=== PATIENT | female | born 1985 | race Native Hawaiian/Other Pacific Islander ===

== ENCOUNTER 2019-12-04 21:41 | Inpatient (IN) | payer MEDICAID, OTHER ==
[~2019-12-04] VITALS: Ht 172.7 cm; Wt 150.4 kg
[2019-12-04] MEDS ORDERED: fentaNYL CITRATE 100 MCG/2 ML VL IV ONE (22:45)
[2019-12-04] MEDS ORDERED: SODIUM CHLORIDE 0.9% 2,000 ML IV ONE (22:45)
[2019-12-04 23:11] LABS: Basophils # (auto) 0.1 10 ^3/uL (0-0.2); Basophils % (auto) 0.4 % (0.0-2.0); Eosinophils # (auto) 0 10 ^3/uL (0-0.8)
[2019-12-04 23:12] LABS: Eosinophils % (auto) 0.3 % (0.0-7.0); Hematocrit 30.4 % (36.0-46.0); Hemoglobin 10.3 g/dL (12.2-16.2); Lymphocytes # (auto) 0.6 10 ^3/uL (0.4-5.4); Lymphocytes % (auto) 4.3 % (10.0-50.0); Mean Corpuscular Hemoglobin 27.6 pg (28.0-32.0); Mean Corpuscular Hgb Conc. 33.8 g/dL (32.0-36.0); Mean Corpuscular Volume 81.7 fL (80.0-100.0); Monocytes # (auto) 0.9 10 ^3/uL (0-1.3); Monocytes % (auto) 6.1 % (0.0-12.0); Neutrophils # (auto) 12.3 10 ^3/uL (1.6-8.6); Neutrophils % (auto) 88.9 % (37.0-80.0); Platelet Count (auto) 283 10^3/uL (140-450); Red Blood Cells 3.72 10^6/uL (4.0-5.20); Red Cell Distribution Width 14.9 % (11.8-14.3); White Blood Cell 13.9 10^3/uL (4.4-10.8)
[2019-12-04 23:28] LABS: Albumin 2.6 g/dL (3.4-5.0); BUN/Creatinine Ratio 10.7; Calcium 7.2 mg/dL (8.5-10.1); Potassium 5.3 mmol/L (3.5-5.1)
[2019-12-04 23:31] LABS: Bilirubin, Total 0.2 mg/dL (0.2-1.0); Total Protein 7.3 g/dL (6.4-8.2)
[2019-12-04 23:40] LABS: Urine Bacteria NONE SEEN /hpf (None Seen); Urine Blood 1+ /uL (Negative); Urine Mucus FEW (None Seen); Urine Specific Gravity 1.013 (1.001-1.035); Urine WBC 14 /hpf (0 - 5)
[2019-12-05] MEDS ORDERED: fentaNYL CITRATE 100 MCG/2 ML VL IV ONE (00:15)
[2019-12-05] MEDS ORDERED: ONDANSETRON HCL 4 MG/2 ML VIAL IV ONE (01:30)
[2019-12-05] MEDS ORDERED: HYDROmorphone HCL 2 MG/ML VL IV ONE (01:30)
[2019-12-05] MEDS ORDERED: SODIUM CHLORIDE 0.9% 1,000 ML IV SCH (02:17)
[2019-12-05] MEDS ORDERED: ACETAMINOPHEN 325 MG TAB PO PRN (02:30)
[2019-12-05] MEDS ORDERED: HYDROcodone-ACET 5/325MG TAB PO PRN (02:30)
[2019-12-05] MEDS ORDERED: LACTULOSE 20Gm/30ML SOLN PO PRN (02:30)
[2019-12-05] MEDS ORDERED: DOCUSATE SOD 100 MG CAP PO PRN (02:30)
[2019-12-05] MEDS ORDERED: ALUM & MAG HYDROX-SIMETH LIQ(MAALOX) 30 ML PO PRN (02:30)
[2019-12-05] MEDS ORDERED: DEXTROSE (50%) 50ML SYRG IV PRN (02:30)
[2019-12-05] MEDS: InsuLIN REG 1unit/0.01ml Soln (100units/ml) SC SCH ×5 (04:00→21:10)
[2019-12-05] MEDS: ACCU-CHEK COMFORT CURVE STRIP VI SCH ×5 (04:16→20:00)
[2019-12-05] MEDS: MORPHINE SULFATE 4 MG/ML SYR/VIAL IV PRN ×2 (05:05→10:45)
[2019-12-05] MEDS: metroNIDAZOLE 500MG/100ML 100 ML IV SCH ×3 (05:37→23:14)
[2019-12-05 06:15] LABS: Basophils # (auto) 0 10 ^3/uL (0-0.2); Basophils % (auto) 0.2 % (0.0-2.0); Eosinophils # (auto) 0.1 10 ^3/uL (0-0.8); Eosinophils % (auto) 0.9 % (0.0-7.0); Hematocrit 30.9 % (36.0-46.0); Hemoglobin 10.1 g/dL (12.2-16.2); Lymphocytes # (auto) 0.5 10 ^3/uL (0.4-5.4); Lymphocytes % (auto) 4.7 % (10.0-50.0); Mean Corpuscular Hgb Conc. 32.8 g/dL (32.0-36.0); Mean Corpuscular Volume 82.2 fL (80.0-100.0); Monocytes # (auto) 0.6 10 ^3/uL (0-1.3); Monocytes % (auto) 5.2 % (0.0-12.0); Neutrophils # (auto) 9.6 10 ^3/uL (1.6-8.6); Platelet Count (auto) 279 10^3/uL (140-450); Red Blood Cells 3.76 10^6/uL (4.0-5.20); Red Cell Distribution Width 14.8 % (11.8-14.3); White Blood Cell 10.8 10^3/uL (4.4-10.8)
[2019-12-05 06:27] LABS: Calcium 7.2 mg/dL (8.5-10.1)
[2019-12-05 06:36] LABS: Potassium 6.8 mmol/L (3.5-5.1)
[2019-12-05] MEDS ORDERED: ALBUTEROL SULF 2.5 MG/0.5ML(0.5%) NEB SOLN NEB ONE (07:00)
[2019-12-05] MEDS ORDERED: CALCIUM GLUC 4.65meq/50ml D5AE 50 ML IV ONE (07:00)
[2019-12-05] MEDS ORDERED: DEXTROSE (50%) 50ML SYRG IV ONE (07:00)
[2019-12-05] MEDS ORDERED: InsuLIN REG 1unit/0.01ml Soln (100units/ml) IV ONE (07:00)
[2019-12-05] MEDS ORDERED: FUROSEMIDE 20 MG/2 ML VIAL IV ONE (07:00)
[2019-12-05] MEDS ORDERED: SODIUM ZIRCONIUM CYCL 10 GM PAK PO ONE (07:00)
[2019-12-05] MEDS ORDERED: LOSARTAN POTASSIUM 50 MG TAB PO SCH (10:00)
[2019-12-05 11:17] VITALS: BP 128/74
[2019-12-05 11:48] LABS: Phosphorus 3.6 mg/dL (2.5-4.90); Uric Acid 10.5 mg/dL (2.6-6.0)
[2019-12-05] MEDS: LACTULOSE 20Gm/30ML SOLN PO SCH ×4 (12:36→22:00)
[2019-12-05] MEDS: SODIUM ZIRCONIUM CYCL 10 GM PAK PO SCH ×3 (12:36→23:12)
[2019-12-05] MEDS: BUMETANIDE 2.5mg/10ml (0.25 mg/ml) INJ IV SCH ×2 (12:36→18:12)
[2019-12-05 12:39] VITALS: BP 146/77
[2019-12-05] MEDS: SODIUM BICARBONATE 50ML VIAL 50 ML in SOD CHL 0.45% 1,000 ML IV SCH ×2 (14:22→23:12)
[2019-12-05] MEDS: MORPHINE SULF INJ 2 MG/ML SYRINGE 1ML IV PRN ×2 (16:30→20:35)
[2019-12-05 17:22] VITALS: BP 161/92
[2019-12-05 17:23] LABS: BUN/Creatinine Ratio 9.7; Calcium 7.7 mg/dL (8.5-10.1); Potassium 5.1 mmol/L (3.5-5.1)
[2019-12-05 20:00] VITALS: BP 132/62
[2019-12-05] MEDS: ONDANSETRON HCL 4 MG/2 ML VIAL IV PRN (20:35)
[2019-12-05 22:00] VITALS: BP 132/62
[2019-12-06] MEDS: ACCU-CHEK COMFORT CURVE STRIP VI SCH ×6 (00:17→20:23)
[2019-12-06] MEDS: InsuLIN REG 1unit/0.01ml Soln (100units/ml) SC SCH ×6 (00:18→20:23)
[2019-12-06] MEDS: ONDANSETRON HCL 4 MG/2 ML VIAL IV PRN ×5 (01:02→22:29)
[2019-12-06] MEDS: MORPHINE SULF INJ 2 MG/ML SYRINGE 1ML IV PRN ×5 (01:02→22:29)
[2019-12-06 04:46] VITALS: BP 154/64
[2019-12-06] MEDS: BUMETANIDE 2.5mg/10ml (0.25 mg/ml) INJ IV SCH ×2 (05:41→17:32)
[2019-12-06] MEDS: metroNIDAZOLE 500MG/100ML 100 ML IV SCH (05:42)
[2019-12-06] MEDS: SODIUM ZIRCONIUM CYCL 10 GM PAK PO SCH ×3 (05:42→22:27)
[2019-12-06] MEDS: SODIUM BICARBONATE 50ML VIAL 50 ML in SOD CHL 0.45% 1,000 ML IV SCH ×2 (08:26→17:32)
[2019-12-06 08:28] LABS: Basophils # (auto) 0 10 ^3/uL (0-0.2); Basophils % (auto) 0.2 % (0.0-2.0); Eosinophils # (auto) 0.6 10 ^3/uL (0-0.8); Hematocrit 30.1 % (36.0-46.0); Hemoglobin 9.8 g/dL (12.2-16.2); Mean Corpuscular Hgb Conc. 32.5 g/dL (32.0-36.0); Monocytes # (auto) 0.6 10 ^3/uL (0-1.3); Red Blood Cells 3.65 10^6/uL (4.0-5.20); White Blood Cell 8.5 10^3/uL (4.4-10.8)
[2019-12-06 08:29] LABS: Eosinophils % (auto) 6.8 % (0.0-7.0); Lymphocytes # (auto) 1.7 10 ^3/uL (0.4-5.4); Lymphocytes % (auto) 20.5 % (10.0-50.0); Mean Corpuscular Hemoglobin 26.7 pg (28.0-32.0); Mean Corpuscular Volume 82.4 fL (80.0-100.0); Neutrophils # (auto) 5.6 10 ^3/uL (1.6-8.6); Neutrophils % (auto) 65.5 % (37.0-80.0); Platelet Count (auto) 284 10^3/uL (140-450); Red Cell Distribution Width 14.9 % (11.8-14.3)
[2019-12-06 08:45] LABS: Calcium 7.3 mg/dL (8.5-10.1)
[2019-12-06 08:47] LABS: BUN/Creatinine Ratio 9.2
[2019-12-06 09:00] VITALS: BP 136/77
[2019-12-06 09:52] LABS: INR 1.07 (0.9-1.15); Partial Thromboplastin Time 33.7 sec (23.64-32.05)
[2019-12-06 13:00] VITALS: BP 150/75
[2019-12-06] MEDS: ALLOPURINOL 100 MG TAB PO SCH (13:12)
[2019-12-06 14:12] LABS: Hepatitis B Surface Antigen Negative (Negative); Hepatitis C Antibody Negative (Negative)
[2019-12-06 17:00] VITALS: BP 158/101
[2019-12-06 22:00] VITALS: BP 149/84
[2019-12-07] MEDS: InsuLIN REG 1unit/0.01ml Soln (100units/ml) SC SCH ×6 (00:33→20:34)
[2019-12-07] MEDS: ACCU-CHEK COMFORT CURVE STRIP VI SCH ×6 (00:33→20:32)
[2019-12-07] MEDS: SODIUM BICARBONATE 50ML VIAL 50 ML in SOD CHL 0.45% 1,000 ML IV SCH ×2 (02:38→15:45)
[2019-12-07] MEDS: ONDANSETRON HCL 4 MG/2 ML VIAL IV PRN ×3 (03:49→21:53)
[2019-12-07] MEDS: MORPHINE SULF INJ 2 MG/ML SYRINGE 1ML IV PRN ×3 (03:49→21:53)
[2019-12-07 05:00] VITALS: BP 137/72
[2019-12-07] MEDS: BUMETANIDE 2.5mg/10ml (0.25 mg/ml) INJ IV SCH ×2 (06:20→17:41)
[2019-12-07] MEDS: SODIUM ZIRCONIUM CYCL 10 GM PAK PO SCH ×3 (06:20→21:53)
[2019-12-07 06:24] LABS: Basophils # (auto) 0 10 ^3/uL (0-0.2); Basophils % (auto) 0.2 % (0.0-2.0); Eosinophils # (auto) 0.8 10 ^3/uL (0-0.8); Hematocrit 31.5 % (36.0-46.0); Hemoglobin 10.3 g/dL (12.2-16.2); Lymphocytes # (auto) 2.1 10 ^3/uL (0.4-5.4); Lymphocytes % (auto) 21.2 % (10.0-50.0); Mean Corpuscular Hgb Conc. 32.8 g/dL (32.0-36.0); Mean Corpuscular Volume 82.3 fL (80.0-100.0); Monocytes # (auto) 0.7 10 ^3/uL (0-1.3); Monocytes % (auto) 6.9 % (0.0-12.0); Neutrophils # (auto) 6.3 10 ^3/uL (1.6-8.6); Neutrophils % (auto) 63.7 % (37.0-80.0); Nucleated Red Blood Cells % 0.1 %; Platelet Count (auto) 305 10^3/uL (140-450); Red Blood Cells 3.83 10^6/uL (4.0-5.20); Red Cell Distribution Width 14.9 % (11.8-14.3); White Blood Cell 9.9 10^3/uL (4.4-10.8)
[2019-12-07 06:54] LABS: Potassium 4.6 mmol/L (3.5-5.1)
[2019-12-07 07:00] LABS: BUN/Creatinine Ratio 9.1; Calcium 7.4 mg/dL (8.5-10.1)
[2019-12-07 08:39] VITALS: BP 151/91
[2019-12-07] MEDS ORDERED: ERGOCALCIFEROL 50,000 UNIT(1.25MG) CAP PO SCH (11:00)
[2019-12-07] MEDS: ALLOPURINOL 100 MG TAB PO SCH (11:03)
[2019-12-07 12:49] VITALS: BP 141/72
[2019-12-07 17:00] VITALS: BP 141/75
[2019-12-07 22:00] VITALS: BP 114/64
[2019-12-08] MEDS: ACCU-CHEK COMFORT CURVE STRIP VI SCH ×5 (00:17→16:04)
[2019-12-08] MEDS: SODIUM BICARBONATE 50ML VIAL 50 ML in SOD CHL 0.45% 1,000 ML IV SCH ×2 (00:18→12:45)
[2019-12-08] MEDS: InsuLIN REG 1unit/0.01ml Soln (100units/ml) SC SCH ×5 (04:00→16:10)
[2019-12-08 05:00] VITALS: BP 137/70
[2019-12-08] MEDS: MORPHINE SULF INJ 2 MG/ML SYRINGE 1ML IV PRN ×2 (06:41→11:38)
[2019-12-08] MEDS: SODIUM ZIRCONIUM CYCL 10 GM PAK PO SCH (06:41)
[2019-12-08] MEDS: ONDANSETRON HCL 4 MG/2 ML VIAL IV PRN ×2 (06:41→11:39)
[2019-12-08] MEDS: BUMETANIDE 2.5mg/10ml (0.25 mg/ml) INJ IV SCH (06:42)
[2019-12-08 09:00] VITALS: BP 121/66
[2019-12-08] MEDS: ALLOPURINOL 100 MG TAB PO SCH (10:16)
[2019-12-08 12:25] VITALS: BP 136/84
[2019-12-08 16:12] LABS: BUN/Creatinine Ratio 8.1; Calcium 7.5 mg/dL (8.5-10.1); Potassium 4.3 mmol/L (3.5-5.1)
[2019-12-08 16:29] VITALS: BP 150/77
[2019-12-08 16:35] VITALS: BP 137/70
== END 2019-12-08 17:43 | disposition home or self-care (01) | DRG 465 ==
LOC: EDBD 21:41 → ER 21:43 → OVERFLOW 21:44 → WEST WING 12-05 10:09 → TELE-WESTW 12-05 14:49
PROVIDERS: ADMIT Hospitalist; ATTEND Internal Medicine
DX: N20.0 Calculus of kidney (principal); N17.0 Acute kidney failure with tubular necrosis; K59.00 Constipation, unspecified; E11.22 Type 2 diabetes mellitus with diabetic chronic kidney disease; E66.01 Morbid (severe) obesity due to excess calories; E87.5 Hyperkalemia; N18.9 Chronic kidney disease, unspecified; E88.09 Other disorders of plasma-protein metabolism, not elsewhere classified; E87.6 Hypokalemia; I12.9 Hypertensive chronic kidney disease with stage 1 through stage 4 chronic kidney disease, or unspecified chronic kidney disease; Z68.42 Body mass index [BMI] 45.0-49.9, adult; Z87.442 Personal history of urinary calculi; Z79.899 Other long term (current) drug therapy; Z79.4 Long term (current) use of insulin; Z68.43 Body mass index [BMI] 50.0-59.9, adult; Z91.15 Patient's noncompliance with renal dialysis; E44.1 Mild protein-calorie malnutrition
CPT/HCPCS: 36415; 74176; 80048; 80053; 81001; 81025; 82306; 82962; 83036; 83970; 84100; 84550; 85025; 85610; 85730; 86803; 87340; 94640; 96361; 96374; 96375; 96376; G0378; J0610; J1815; J2405; J3490